=== PATIENT | female | born 1985 | race African-American/Black ===

== ENCOUNTER 2024-09-21 13:36 | Emergency (ER) | payer OTHER ==
[2024-09-21 13:44] VITALS: BP 113/72; PULSE 106; RESP 18; TEMP 98.6; BMI 23.8
[2024-09-21] MEDS ORDERED: KETOROLAC TROMETHAMINE 30 MG/1 ML VIAL ONE (15:28)
[2024-09-21] MEDS ORDERED: ACETAMINOPHEN 500 MG TABLET (FP) ONE (15:29)
[2024-09-21] MEDS: KETOROLAC TROMETHAMINE 30 MG/1 ML VIAL IM ONE (15:35)
[2024-09-21] MEDS: ACETAMINOPHEN 500 MG TABLET (FP) PO ONE (15:36)
== END 2024-09-21 17:54 | disposition home or self-care (01) ==
LOC: JER 13:36
PROC: 3E0133Z Introduction of Anti-inflammatory into Subcutaneous Tissue, Percutaneous Approach (ICD-10-PCS; principal; 2024-09-21)
DX: M25.561 Pain in right knee (principal); M25.571 Pain in right ankle and joints of right foot
CPT/HCPCS: 73562-TC-RT-FY; 73610-TC-RT-FY; 99284-25

== ENCOUNTER 2024-11-18 04:10 | Day surgery (SDC) | payer OTHER ==
[2024-11-17 12:42] VITALS: BMI 27.3
[2024-11-18] MEDS ORDERED: ACETAMINOPHEN 500 MG TABLET (FP) PO PRN (09:50)
[2024-11-18] MEDS: TRIAMCINOLONE ACET 40MG/1ML VIAL IM ONE (10:54)
[2024-11-18 14:55] VITALS: RESP 18
[2024-11-18] MEDS: BUPIVACAINE HCL/PF 0.5% (5 MG/ML) 30 ML VIAL IJ ONE (15:45)
[2024-11-18] MEDS: LIDOCAINE HCL 1% PRESERVATIVE FREE - 30ML VIAL IJ ONE (15:45)
[2024-11-18] MEDS: IOHEXOL 180 MG/1 ML ML IJ ONE (15:45)
[2024-11-18 16:16] VITALS: BP 126/81; PULSE 68; TEMP 97.5
== END 2024-11-18 04:20 | disposition home or self-care (01) ==
LOC: JASU-SURG 04:10
PROVIDERS: ATTEND Pain Medicine Pain Medicine
PROC: 3E0U3BZ Introduction of Anesthetic Agent into Joints, Percutaneous Approach (ICD-10-PCS; 2024-11-18)
PROC: 3E0U33Z Introduction of Anti-inflammatory into Joints, Percutaneous Approach (ICD-10-PCS; principal; 2024-11-18 16:15)
DX: M53.3 Sacrococcygeal disorders, not elsewhere classified (principal)
CPT/HCPCS: 76000-TC-FY

== ENCOUNTER 2025-08-31 08:26 | Day surgery (SDC) | payer OTHER ==
[2025-08-29 12:22] VITALS: BMI 29.2
[2025-08-31] MEDS ORDERED: SIMETHICONE 40 MG/0.6 ML BOTTLE ONE (09:37)
[2025-08-31 10:12] VITALS: PULSE 90; TEMP 97
[2025-08-31 10:14] VITALS: BP 120/68; RESP 19
== END 2025-08-31 10:15 | disposition home or self-care (01) ==
LOC: FASU-ENDO 08:26
PROVIDERS: ATTEND Internal Medicine Gastroenterology
PROC: 0DB98ZX Excision of Duodenum, Via Natural or Artificial Opening Endoscopic, Diagnostic (ICD-10-PCS; 2025-08-31)
PROC: 0DB78ZX Excision of Stomach, Pylorus, Via Natural or Artificial Opening Endoscopic, Diagnostic (ICD-10-PCS; 2025-08-31)
PROC: 0DB68ZX Excision of Stomach, Via Natural or Artificial Opening Endoscopic, Diagnostic (ICD-10-PCS; 2025-08-31)
PROC: 0DJD8ZZ Inspection of Lower Intestinal Tract, Via Natural or Artificial Opening Endoscopic (ICD-10-PCS; principal; 2025-08-31 09:19)
DX: K29.50 Unspecified chronic gastritis without bleeding (principal); K29.80 Duodenitis without bleeding; R10.32 Left lower quadrant pain
CPT/HCPCS: 81025; 88305-TC; 88342-TC